=== PATIENT | female | born 1960 | race African-American/Black ===

== ENCOUNTER 2020-06-15 13:16 | Outpatient (CLI) | payer MEDICAID ==
[~2020-06-15] VITALS: Ht 165.1 cm; Wt 60.3 kg
[2020-06-15 13:28] VITALS: BP 154/104
[2020-06-15 13:31] VITALS: BP 147/98
== END 2020-06-15 15:16 | disposition home or self-care (01) ==
LOC: PAN 13:16
DX: R10.9 Unspecified abdominal pain (principal)
CPT/HCPCS: 99203